=== PATIENT | female | born 1980 ===

== ENCOUNTER 2020-02-28 21:59 | Inpatient (IN) | payer OTHER ==
[~2020-02-28] VITALS: Ht 162.6 cm; Wt 70.8 kg
[~2020-02-28 21:59] MED LIST: PRENATAL CAPLE1 EACH PO
== END 2020-03-02 12:24 | disposition home or self-care (01) | DRG 807 ==
LOC: LDR 21:59 → SURG-SUITE 02-29 09:34
PROVIDERS: ADMIT Obstetrics & Gynecology; ATTEND Obstetrics & Gynecology
PROC: 3E033VJ Introduction of Other Hormone into Peripheral Vein, Percutaneous Approach (ICD-10-PCS; 2020-02-28)
PROC: 4A1HXCZ Monitoring of Products of Conception, Cardiac Rate, External Approach (ICD-10-PCS; 2020-02-28)
PROC: 10E0XZZ Delivery of Products of Conception, External Approach (ICD-10-PCS; principal; 2020-02-29)
PROC: 0UQGXZZ Repair Vagina, External Approach (ICD-10-PCS; 2020-02-29)
DX: O71.4 Obstetric high vaginal laceration alone (principal); Z37.0 Single live birth; Z3A.40 40 weeks gestation of pregnancy; O99.824 Streptococcus B carrier state complicating childbirth